=== PATIENT | female | born 1995 | race Caucasian/White ===

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

== ENCOUNTER 2017-01-28 13:50 | Inpatient (IN) ==
[2017-01-28] MEDS ORDERED: Famotidine 20 MG/2 ML VIAL IVP PRN (14:09)
[2017-01-28] MEDS ORDERED: Metoclopramide 10 MG/2 ML VIAL IVP PRN (14:09)
[2017-01-28] MEDS ORDERED: Ringers Solution, Lactated 1,000 ML IVC SCH (14:15)
[2017-01-28 14:30] LABS: Basophils % 0.2 %; Eosinophils % 0.2 %; Hematocrit 27.8 % (35.3-44.9); Hemoglobin 8.5 g/dL (11.5-15.4); Immature Granulocytes % 0.6 % (0-4); Lymphocytes # 2.5 K/mcL (0.6-4.6); Lymphocytes % 20.2 %; Mean Corpuscular HGB Conc 30.6 g/dL (31.6-35.5); Mean Corpuscular Hemoglobin 23.9 pg (28.0-33.3); Mean Corpuscular Volume 78.3 fL (83.0-100.0); Mean Platelet Volume 12.5 fL (9.4-12.4); Monocytes # 0.7 K/mcL (0.0-1.3); Monocytes % 5.5 %; Neutrophils # 9.1 K/mcL (1.6-8.9); Platelet Count 278 K/mcL (140-400); Red Blood Count 3.55 M/mcL (3.82-4.97); Segmented Neutrophils % 73.3 %
[2017-01-28 14:37] LABS: Amphetamine Screen,Urine Negative ng/mL (Cutoff=1000); Barbiturate Screen,Urine Negative ng/mL (Cutoff=200); Benzodiazepines Screen,Urine Negative ng/mL (Cutoff=200); Cannabinoid Screen,Urine Negative ng/mL (Cutoff = 50); Cocaine Screen,Urine Negative ng/mL (Cutoff= 300); Opiate Screen,Urine Negative ng/mL (Cutoff=300); Phencyclidine Screen,Urine Negative ng/mL (Cutoff=25)
[2017-01-28 14:40] LABS: Alanine Aminotransferase 16 Units/L (0-55); Aspartate Amino Transferase 13 Units/L (5-34); BUN/Creatinine Ratio 11 (6-26); Blood Urea Nitrogen 7 mg/dL (7-20); Lactate Dehydrogenase 198 Units/L (159-327); Uric Acid 4.4 mg/dL (2.6-6.0); eGFR For African Americans > 60; eGFR For Non-African Americans > 60
[2017-01-28] MEDS ORDERED: miSOPROStol 100 MCG TABLET PO STA (14:50)
[2017-01-28 14:56] LABS: Protein/Creatinine Ratio,Urine 0.19 mg/mg (0-0.20)
--- NOTE | 2017-01-28 14:58 | OB/GYN History & Physical ---
Date of Encounter: 01/28/17 Time of Encounter: 14:47 Assessment and Plan (1) Non-stress test reactive Current visit: Yes Status: Acute Baseline 140 bpm moderate variability (2) Anemia affecting in third trimester Current visit: Yes Status: Acute Hemoglobin 8.5, which is a drop from last check on 12/04/2016 of 9.6 consider type and screen (3) H/O biophysical profile with non-stress test Current visit: Yes Status: Acute 6 out of 10 in the office today equivocal result (4) Nausea and vomiting during Current visit: Yes Status: Acute (5) Proteinuria affecting Current visit: Yes Status: Acute Protein creatinine ratio is 0.19 today as plan for follow-up with nephrology in April Qualifiers: Trimester: third trimester Qualified Code(s): O12.13 - Gestational proteinuria, third trimester (6) 40 weeks gestation of Current visit: Yes Status: Acute Admit to the labor and delivery induction of labor starting with Cytotec will monitor for cervical change will monitor fetus for distress anticipate spontaneous vaginal delivery History of Present Illness Chief complaint: induction of labor HPI: Bri Mccain is a 21 year-old G 1 P 0 female at 40 weeks and 1 day who presents to labor and delivery for induction secondary to equivocal biophysical profile and elevated pressure at 180/100. Patient reports good movement. Patient denies vaginal bleeding, contractions, and leakage of fluid. Patient admits to nausea, vomiting x1 today, diarrhea, and headaches. The patient was diagnosed with hyperemesis gravidarum earlier in the , and the nausea/vomiting has been fairly consistent since then. The headaches have been occurring throughout the last week. She gets several throughout the day, but she does take any medication for them. She has been having diarrhea through the past week as well, with 3-4 episodes a day. Patient denies shortness of breath, chest pain, visual disturbance, LE edema, and upper abdominal pain. The patient's has been complicated by proteinuria, for which she was seen by nephrology with recommendations to return to them in April for recheck. She is also had anemia throughout the , with hemoglobin of 9.1 on 11/06/2016 and 9.6 on 12/04/2016. Blood pressure not been found to be elevated in the office prior to today's visit. She was last seen in the office by Dr. Matrinez today, 01/28/2017. Cervix was 2 cm and 70% effaced. Station was -3. Blood type: O+ Rubella and Varicella Immune Hep B negative GBS negative All other serologies negative Patient last ate at 8 AM this morning. Past Med Surg Social Fam HX - Past Medical History Source: patient Medical history: non-contributory Psychiatric history: no psych history - Past Surgical History Surgical History: other - Social History Smoking Status: Never smoker Smokeless Tobacco Status: No Alcohol use: none Drug use: none - Family History Daughter Hx Family Endocrine Disorder: Yes (DIABETES) Mother Adopted: No Living Status: Still Living Hx Family Cardiac Disorders: No Hx Family Respiratory Disorders: No Hx Family Cancer: No Hx Family GI Disorders: No Hx Family Endocrine Disorder: No Hx Family Neuromuscular Disorders: No Hx Family Neurologic Disorders: No Hx Family HEENT Disorders: No Hx Family Autoimmune Disorders: No Father Living Status: Still Living Hx Family Endocrine Disorder: Yes (diabetes) Obstetrical History - Pregnancies : 1 Para: 0 Term: 0 : 0 Ab's: 0 Livin Medications and Allergies No Known Home Drugs 01/28/17 [History] 3 Allergy/AdvReac Type Severity Reaction Status Date / Time No Known Allergies Allergy Verified 01/03/17 15:05 Review of System OB - Cardiovascular Cardiovascular: no chest pain, no dyspnea, no leg edema - Respiratory Respiratory: no dyspnea - Gastrointestinal Gastrointestinal: diarrhea, nausea, vomiting - Neurological Nerological: headache(s) Exam - Constitutional Constitutional: well developed, well nourished, no acute distress - HEENT HEENT: Normocephaly - Neck Neck exam: trachea midline - Lungs Respiratory exam: CTAB - Cardiovascular Cardiovascular exam: RRR, +S1, +S2 - Breasts Breast: bilateral: normal - Abdomen Abdomen: Present: gravid, non tender - Extremities Extremities exam: normal inspection Deep Tendon Reflex Grade: 2+ Normal - Cervix Dilation: 2 Effacement: 70 Station: -3 - Uterus Uterus exam: Present: normal size, normal contour Results Result Diagrams: 01/28/17 14:15 01/28/17 14:15 Abnormal lab results WBC 12.4 K/mcL (4.3-11.1) H 01/28/17 14:15 RBC 3.55 M/mcL (3.82-4.97) L 01/28/17 14:15 Hgb 8.5 g/dL (11.5-15.4) L 01/28/17 14:15 Hct 27.8 % (35.3-44.9) L 01/28/17 14:15 MCV 78.3 fL (83.0-100.0) L 01/28/17 14:15 MCH 23.9 pg (28.0-33.3) L 01/28/17 14:15 MCHC 30.6 g/dL (31.6-35.5) L 01/28/17 14:15 RDW 16.0 % (11.5-14.5) H 01/28/17 14:15 MPV 12.5 fL (9.4-12.4) H 01/28/17 14:15 Neutrophils # 9.1 K/mcL (1.6-8.9) H 01/28/17 14:15 All other labs normal. - VTE Reasons for not Prescribing Prophylaxis: Treatment not Indicated - Low risk for VTE
--- NOTE | 2017-01-28 18:38 | OB Labor Progress Note ---
Date of Encounter: 01/28/17 Time of Encounter: 18:33 Labor Progress Note - Subjective Subjective: Pt sitting comfortably in bed, with parents and father of baby at bedside. Dr. Martinez discussed with patient the 6 out of 8 biophysical profile scoring and reasons and methods for induction with family. Discussed with pt the unlikely event of a and reasons for one. Pt and family agree with treatment plan. - Vital Signs Vital Signs: VSS - Cervix Cervix: 2, 70, -30, per CNM - Heart Tones Heart Tones: 140 bpm baseline. Moderate variability. - [place]: Contractions every 2-5 minutes. - Plan Plan: Continue monitoring FHTs, tocometry, and serial cervical exams. AROM if after next cervical exam at 1930, if cervix has not progressed. Epidural if desired. Anticipate .
--- NOTE | 2017-01-28 19:17 | Anesthesia Evaluation PreOp ---
Date of Encounter: 01/28/17 Time of Encounter: 19:04 - Past History Planned Operation: labor epidural Cardiac History: Denies any Significant Hx Pulmonary History: Denies Any Significant HX, Other (states had asthma as a child, hasn't had any attacks in many years and does not take any medication.) AREA INTELLIGENCE TECHNICIAN History: Denies Any Significant HX Other Medical History: Other (obesity) Anesthesia History: No Prior Anesthetic Complications, Past Anesthesia (ureter surgery for kidney reflux at age 3 year, no problems with general anesthesia. No family history of anesthetic problems.) : Yes Alcohol Use: none Drug use: none Medications and Allergies No Known Home Drugs 01/28/17 [History] 3 Allergy/AdvReac Type Severity Reaction Status Date / Time No Known Allergies Allergy Verified 01/03/17 15:05 - Meds/Allergy Pre-op Review Medications Reviewed: Yes Allergies Reviewed: Yes Beta Blockers on Current Med List: No Anesthesia Results - Labs 01/28/17 14:15 01/28/17 14:15 Anesthesia Exam 147/85, 88. FHTs 140s Height: 5'6" Weight: 111kg NPO (# of Hours): 11 hours Pain Scale: 1 Pain Scale Used: Numeric (1 - 10) - HEENT Pupil (Motor): Pupils equal, EOMI Mallampati: II Teeth: Normal Oral Opening: Greater than 3 - AREA INTELLIGENCE TECHNICIAN LOC: Oriented AREA INTELLIGENCE TECHNICIAN Motor: Normal RUE, Normal LUE, Normal RLE, Normal LLE, Normal Face AREA INTELLIGENCE TECHNICIAN Sensory: Normal: RUE, LUE, RLE, LLE, Face - Cardiac Rhythm: Regular - Pulmonary Breath Sounds: bilateral Clear Respiratory Effort: Symmetrical Anesthesia Assess/Plan ASA Score: 2 Modified Franck Scale for Level of Consciousness: Cooperative, oriented, and tranquil Anesthetic Plan: Regional Monitoring Plan: Standard Monitors
[2017-01-28] MEDS ORDERED: *HR* FentaNYL (PF) 100 MCG/2 ML VIAL EP ONE (19:20)
[2017-01-28] MEDS ORDERED: Bupivacaine-MPF 0.25% 10 ML VIAL EP ONE (19:20)
[2017-01-28] MEDS ORDERED: Epidural Premix (fent/bupiv) 110 ML EP SCH (19:30)
--- NOTE | 2017-01-28 20:10 | OB Labor Progress Note ---
Date of Encounter: 01/28/17 Time of Encounter: 20:08 Labor Progress Note - Subjective Subjective: Patient in bed, discussed POC with patient. Patient denies any questions or concerns. - Cervix Cervix: 3/80/-2 - Heart Tones Heart Tones: 140 bpm moderate variability +15x15 accels no decels noted. Cat. 1 tracing. - [place]: 1.5-2.5 min apart - Interventions Interventions: SVE, AROM small amount of clear fluid. - Plan Plan: Continue labor management.
[2017-01-28] MEDS ORDERED: Oxytocin 20 units/ LR 1000 mL 20 UNIT/1,000 ML BAG IVC SCH (21:30)
[2017-01-28] MEDS ORDERED: *HR* Nalbuphine 20 MG/ML AMPUL IVP PRN (21:34)
--- NOTE | 2017-01-29 01:18 | OB Labor Progress Note ---
Date of Encounter: 01/29/17 Time of Encounter: 01:15 Labor Progress Note - Subjective Subjective: Patient resting in bed. Discussed POC with patient. patient denies any questions or concerns - Cervix Cervix: 3/80/-2 - Heart Tones Heart Tones: 130 bpm moderate variability +15x15 accels no decels noted. CAt. 1 tracing - [place]: 2-3 min apart - Interventions Interventions: SVE, IUPC placed without difficulty - Plan Plan: Continue labor management.
[2017-01-29] MEDS ORDERED: *HR* FentaNYL (PF) 100 MCG/2 ML VIAL ONE ×2 (02:32→10:01)
[2017-01-29] MEDS ORDERED: Bupivacaine-MPF 0.25% 10 ML VIAL ONE (02:32)
[2017-01-29] MEDS ORDERED: Epidural Premix (fent/bupiv) 110 ML EP ONE ×2 (02:32→09:29)
--- NOTE | 2017-01-29 03:08 | Anesthesia Procedures ---
Date of Encounter: 01/29/17 Time of Encounter: 02:33 Procedures: Anesthesia - Epidural/Spinal Patient ID/Chart reviewed: Yes Patient examined: Yes OB Eval: Gestational age: 40 OB Eval: : 1 OB Eval: Hx Para: 0 OB Eval: Dilated at (cm): 3 OB Eval: Contractions: Non-stressed pattern Consent Obtained: Yes Supplemental Oxygen: None/Room Air Site Prep: Aseptic Technique, Sterile prep and drape, Povidone-Iodine 1% Patient position: upright Local Anesthetic: Lidocaine 1% Amount of Local Anesthetic used: 3 Touhy Needle Gauge: 18 Touhy Needle Depth (cm): 5 Catheter Depth at Skin (cm): 18 Test Dose (1.5% Lido + Epi): Volume given (mls): 3 Test Dose Result: Negative Loading Dose: 0.25% Marcaine (mls): 8 Loading Dose: Fentanyl (mcg): 100 Loading Dose Administered: Thru Catheter Infusion Med: 0.125% Bupivacaine w/ 2 mcg/ml Fentanyl Infusion Rate (mls/hr): [address]: Tegaderm, Tape Interspace Used: L3-L4 Loss of Resistance (FELIPE): Yes Blood: No CSF: No Paresthesia: No Vitals + FHT's: 3 Vital Signs Time 0233 0240 0245 0250 0255 0300 BP 140/90 140/68 150/72 132/69 138/87 132/79 Pulse 85 90 88 89 88 89 FHTs 140 140 140 140 140 140
[2017-01-29] MEDS ORDERED: Ondansetron 4 MG/2 ML VIAL IVP ONE (06:58)
[2017-01-29] MEDS ORDERED: *HR* Ropivacaine/PF 0.2% 10 ML AMPUL ONE (10:01)
--- NOTE | 2017-01-29 10:14 | Anesthesia Progress Note ---
Date of Encounter: 01/29/17 Time of Encounter: 10:09 Anesthesia Note - Note Note: Called to patient bedside to evaluate breakthrough labor pain. Patient describes back pain and bilateral lower pelvic pain. 5mL of 0.2% ropivicaine and 100mcg fentanyl administered. Patient reports significant improvement in pain scores. VSS 01/29/17 10:09
--- NOTE | 2017-01-29 12:51 | OB Labor Progress Note ---
Date of Encounter: 01/29/17 Time of Encounter: 12:47 Labor Progress Note - Subjective Subjective: Pt comfortable in bed with epidural does feel some pressure in bottom from contractions - Cervix Cervix: 8/90/-1 - Heart Tones Heart Tones: 150/moderate/+accels/occ variables - [place]: IUPC adequate - Plan Plan: Continue current management maintain pitocin per protocol Anticipate Discussed with Dr. Chawla
--- NOTE | 2017-01-29 15:23 | OB/GYN Procedure Note ---
Delivery - Delivery Date: 01/29/17 Provider: Renee Tyler Intrapartum events: none Delivery induction: AROM, oxytocin, misoprostol Delivery monitor: external FHT, external uterine, internal uterine Anesthesia: epidural Estimated Blood Loss: 200 - Infant (s) Infant A Infant Delivery Date: 01/29/17 Infant Delivery Time: : Presentation: vertex Position: OA Route of delivery: Gender: Female Viability: Viable Pounds: 7 Ounces: 5 Weight Gram: 3305 kg at 1 minute: 8 at 5 mins: 9 Shoulder Dystocia: not encountered Specimens collected: cord blood Placenta: spontaneous Cord: nuchal cord, 3 umbilical vessels, delivered through nuchal - Repair Episiotomy: none Laceration Description: Superficial - Complications Delivery complications: none Delivery comments: Patient progressed to complete and began maternal bearing down efforts to of liveborn female, vertex delivered OA, loose nuchal cord identified, shoulders and body easily followed (delivering through her nuchal cord). Vigorous placed on maternal abdomen. Apgars 8/9. Placenta delivered spontaneously and complete upon inspection. Fundus massaged to firm Pitocin started per policy. Perineum with superficial lacerations noted to be hemostatic. EBL 200. and mother stable and left bonding in [facility] in labor and delivery - Disposition Mom disposition: stable in LDR disposition: stable in LDR
[2017-01-29] MEDS ORDERED: Oxytocin 20 units/ LR 1000 mL 20 UNIT/1,000 ML BAG IVC SCH (18:07)
[2017-01-29] MEDS ORDERED: Ibuprofen 600 MG TABLET PO PRN (18:07)
[2017-01-29] MEDS ORDERED: Acetaminophen 325 MG TABLET PO PRN (18:07)
[2017-01-29] MEDS ORDERED: Lanolin 7 G OINT...G. TP PRN (18:07)
[2017-01-29] MEDS ORDERED: Benzocaine/Menthol 56 GM AEROSOL SPRAY TP PRN (18:07)
[2017-01-30 08:19] LABS: Basophils % 0.1 %; Eosinophils % 0.2 %; Hematocrit 24.1 % (35.3-44.9); Hemoglobin 7.4 g/dL (11.5-15.4); Immature Granulocytes % 0.9 % (0-4); Lymphocytes # 3.9 K/mcL (0.6-4.6); Lymphocytes % 16.2 %; Mean Corpuscular HGB Conc 30.7 g/dL (31.6-35.5); Mean Corpuscular Hemoglobin 24.3 pg (28.0-33.3); Mean Corpuscular Volume 79.3 fL (83.0-100.0); Mean Platelet Volume 12.5 fL (9.4-12.4); Monocytes # 1.5 K/mcL (0.0-1.3); Monocytes % 6.3 %; Platelet Count 240 K/mcL (140-400); Red Blood Count 3.04 M/mcL (3.82-4.97); Red Cell Distribution Width 16.5 % (11.5-14.5); Segmented Neutrophils % 76.3 %
[2017-01-30 08:28] LABS: Eosinophils # 0.1 K/mcL (0.0-0.6); Neutrophils # 18.2 K/mcL (1.6-8.9)
--- NOTE | 2017-01-30 08:31 | OB/GYN Progress Note ---
Date of Encounter: 01/30/17 Time of Encounter: 08:30 Subjective - Subjective Principal diagnosis: PPD1 Vaginal Delivery Interval history: Bri is meeting all milestones, no concerns or questions this morning. Patient reports: appetite normal, voiding normally, pain well controlled, ambulating normally : doing well Objective - Latest Vital Signs Latest vital signs: Vital Signs Temp Pulse Pulse Resp BP Pulse Ox 01/30/17 02:31 99.5 F 96 16 136/82 99 01/30/17 00:15 99.5 F 104 16 140/84 97 01/29/17 22:30 98.3 F 106 16 153/87 97 01/29/17 20:50 99 F 108 16 144/85 97 01/29/17 19:35 116 01/29/17 19:30 99.5 F 116 16 151/83 99 01/29/17 18:45 99.2 F 105 16 134/85 01/29/17 17:45 98.2 F 105 16 132/84 97 Intake and Output 01/29/17 01/30/17 01/30/17 23:59 07:59 15:59 Intake Total 0 / 0 1000 / 1000 Balance 0 / 0 1000 / 1000 Intake: Oral 0 / 0 1000 / 1000 Other: Meal Dinner Percent of Meal Consumed 50% Stool Characteristics Normal for Patient # Voids 1 3 # Urine Diapers 1 Weight 109.004 kg 107.9 kg Patient Weight 01/30/17 23:59 Weight 107.9 kg - Exam Lungs: bilateral: normal Chest: Normal S1, Normal S2 Extremities: Present: normal Uterus: Present: normal Uterus Position: 1 Finger Below Umbilicus - Labs Labs: Laboratory Results - last 24 hr 01/30/17 07:41 WBC 23.8 H D RBC 3.04 L Hgb 7.4 L Hct 24.1 L MCV 79.3 L MCH 24.3 L MCHC 30.7 L RDW 16.5 H Plt Count 240 MPV 12.5 H Immature Gran % 0.9 Seg Neutrophils % 76.3 Lymphocytes % 16.2 Monocytes % 6.3 Eosinophils % 0.2 Basophils % 0.1 Neutrophils # 18.2 H Lymphocytes # 3.9 Monocytes # 1.5 H Eosinophils # 0.1 Basophils # 0.0
--- NOTE | 2017-01-30 08:44 | OB/GYN Progress Note ---
Date of Encounter: 01/30/17 Time of Encounter: 08:41 - Assessment and Plan (1) Normal vaginal delivery Current Visit: Yes Status: Acute Continue to monitor bleeding, and any pt symptoms concerns. Pt taking iron. Continue care. Anticipate discharge tomorrow AM 01/31/17. Subjective - Subjective Principal diagnosis: PPD1 Vaginal Delivery Interval history: Bri is ambulating, eating well, voiding well; reports bleeding (not dizzy). Due to pt's morning labs showing a hemoglobin of 7.4, will keep pt for 1 more day and reassess labs in am. Patient reports: appetite normal, voiding normally, pain well controlled, ambulating normally, other (bleeding; not dizzy) Objective - Latest Vital Signs Latest vital signs: Vital Signs Temp Pulse Pulse Resp BP Pulse Ox 01/30/17 07:45 98.4 F 95 16 127/78 98 01/30/17 02:31 99.5 F 96 16 136/82 99 01/30/17 00:15 99.5 F 104 16 140/84 97 01/29/17 22:30 98.3 F 106 16 153/87 97 01/29/17 20:50 99 F 108 16 144/85 97 01/29/17 19:35 116 01/29/17 19:30 99.5 F 116 16 151/83 99 01/29/17 18:45 99.2 F 105 16 134/85 01/29/17 17:45 98.2 F 105 16 132/84 97 Intake and Output 01/29/17 01/30/17 01/30/17 23:59 07:59 15:59 Intake Total 0 / 0 1000 / 1000 Output Total 500 / 500 Balance 0 / 0 500 / 500 Intake: Oral 0 / 0 1000 / 1000 Output: Urine 500 / 500 Other: Meal Dinner Percent of Meal Consumed 50% Stool Characteristics Normal for Patient # Voids 1 3 # Urine Diapers 1 Weight 109.004 kg 107.9 kg Patient Weight 01/30/17 23:59 Weight 107.9 kg - Exam Lungs: bilateral: normal Chest: Normal S1, Normal S2 Extremities: Present: normal Abdomen: Present: normal appearance. Absent: tenderness Uterus Position: 1 Finger Below Umbilicus - Labs Labs: Laboratory Results - last 24 hr 01/30/17 07:41 WBC 23.8 H D RBC 3.04 L Hgb 7.4 L Hct 24.1 L MCV 79.3 L MCH 24.3 L MCHC 30.7 L RDW 16.5 H Plt Count 240 MPV 12.5 H Immature Gran % 0.9 Seg Neutrophils % 76.3 Lymphocytes % 16.2 Monocytes % 6.3 Eosinophils % 0.2 Basophils % 0.1 Neutrophils # 18.2 H Lymphocytes # 3.9 Monocytes # 1.5 H Eosinophils # 0.1 Basophils # 0.0
[2017-01-30] MEDS: Prenatal Vit/FA 1 EACH TABLET PO SCH (10:22)
[2017-01-31] MEDS: Prenatal Vit/FA 1 EACH TABLET PO SCH (08:03)
[2017-01-31 08:29] LABS: Basophils # 0.1 K/mcL (0.0-0.2); Basophils % 0.2 %; Eosinophils # 0.1 K/mcL (0.0-0.6); Eosinophils % 0.4 %; Hematocrit 26.5 % (35.3-44.9); Immature Granulocytes % 0.8 % (0-4); Lymphocytes # 4.5 K/mcL (0.6-4.6); Lymphocytes % 20.9 %; Mean Corpuscular HGB Conc 30.2 g/dL (31.6-35.5); Mean Corpuscular Volume 79.6 fL (83.0-100.0); Mean Platelet Volume 11.9 fL (9.4-12.4); Monocytes # 1.3 K/mcL (0.0-1.3); Neutrophils # 15.5 K/mcL (1.6-8.9); Platelet Count 297 K/mcL (140-400); Red Blood Count 3.33 M/mcL (3.82-4.97); Red Cell Distribution Width 16.8 % (11.5-14.5); Segmented Neutrophils % 71.7 %
--- NOTE | 2017-01-31 08:35 | Discharge Summary ---
Date of Encounter: 01/31/17 Time of Encounter: 08:38 - Discharge Diagnosis (1) 40 weeks gestation of Priority: Primary Status: Acute (2) Non-stress test reactive Priority: Secondary Status: Acute (3) Anemia affecting in third trimester Priority: Secondary Status: Acute (4) H/O biophysical profile with non-stress test Priority: Secondary Status: Acute (5) Nausea and vomiting during Priority: Secondary Status: Acute (6) Proteinuria affecting Priority: Secondary Status: Acute Qualifiers: Trimester: third trimester Qualified Code(s): O12.13 - Gestational proteinuria, third trimester - Discharge Medications Prescriptions: Ibuprofen [Motrin] 600 mg PO Q6HR PRN #60 tab PRN Reason: Pain Docusate [Colace] 100 mg PO BID PRN #60 capsule PRN Reason: Constipation Ferrous Sulfate [Iron] 325 mg PO BID #60 tablet Home Medications: Docusate [Colace] 100 mg PO BID PRN #60 capsule 01/31/17 [Rx] Ferrous Sulfate [Iron] 325 mg PO BID #60 tablet 01/31/17 [Rx] Ibuprofen [Motrin] 600 mg PO Q6HR PRN #60 tab 01/31/17 [Rx] Allergies/Adverse Reactions: 3 Allergy/AdvReac Type Severity Reaction Status Date / Time No Known Allergies Allergy Verified 01/03/17 15:05 Data Procedures and tests throughout hospitalization: Laboratory Tests 01/28/17 01/28/17 01/28/17 14:15 14:15 14:15 WBC 12.4 H RBC 3.55 L Hgb 8.5 L Hct 27.8 L MCV 78.3 L MCH 23.9 L MCHC 30.6 L RDW 16.0 H Plt Count 278 MPV 12.5 H Immature Gran % 0.6 Seg Neutrophils % 73.3 Lymphocytes % 20.2 Monocytes % 5.5 Eosinophils % 0.2 Basophils % 0.2 Neutrophils # 9.1 H Lymphocytes # 2.5 Monocytes # 0.7 Eosinophils # 0.0 Basophils # 0.0 BUN 7 Creatinine 0.63 Est GFR ( Amer) > 60 Est GFR (Non-Af Amer) > 60 BUN/Creatinine Ratio 11 Uric Acid 4.4 AST 13 ALT 16 Lactate Dehydrogenase 198 Urine Creatinine Protein/Creatinin Ratio Urine Total Protein Urine Opiates Screen Negative Ur Barbiturates Screen Negative Ur Phencyclidine Scrn Negative Ur Amphetamines Screen Negative U Benzodiazepines Scrn Negative Urine Cocaine Screen Negative U Marijuana (THC) Screen Negative 01/28/17 01/30/17 01/31/17 14:15 07:41 07:45 WBC 23.8 H D 21.7 H RBC 3.04 L 3.33 L Hgb 7.4 L 8.0 L Hct 24.1 L 26.5 L MCV 79.3 L 79.6 L MCH 24.3 L 24.0 L MCHC 30.7 L 30.2 L RDW 16.5 H 16.8 H Plt Count 240 297 MPV 12.5 H 11.9 Immature Gran % 0.9 0.8 Seg Neutrophils % 76.3 71.7 Lymphocytes % 16.2 20.9 Monocytes % 6.3 6.0 Eosinophils % 0.2 0.4 Basophils % 0.1 0.2 Neutrophils # 18.2 H 15.5 H Lymphocytes # 3.9 4.5 Monocytes # 1.5 H 1.3 Eosinophils # 0.1 0.1 Basophils # 0.0 0.1 BUN Creatinine Est GFR ( Amer) Est GFR (Non-Af Amer) BUN/Creatinine Ratio Uric Acid AST ALT Lactate Dehydrogenase Urine Creatinine 242 Protein/Creatinin Ratio 0.19 Urine Total Protein 46 H Urine Opiates Screen Ur Barbiturates Screen Ur Phencyclidine Scrn Ur Amphetamines Screen U Benzodiazepines Scrn Urine Cocaine Screen U Marijuana (THC) Screen Labs on day of discharge: Labs from last 24 hours 01/31/17 07:45 WBC 21.7 H RBC 3.33 L Hgb 8.0 L Hct 26.5 L MCV 79.6 L MCH 24.0 L MCHC 30.2 L RDW 16.8 H Plt Count 297 MPV 11.9 Immature Gran % 0.8 Seg Neutrophils % 71.7 Lymphocytes % 20.9 Monocytes % 6.0 Eosinophils % 0.4 Basophils % 0.2 Neutrophils # 15.5 H Lymphocytes # 4.5 Monocytes # 1.3 Eosinophils # 0.1 Basophils # 0.1 Date of admission: 01/28/17 13:50 Primary care physician: PCP NONE Consults: 01/29/17 18:07 Consult to Computer Systems Technology Instructor [CONS] Routine Comment: Vaginal delivery, consult needed Discharging clinician: Leslie Chawla Anticipated date of discharge: 01/31/17 - Patient Status Disposition: Home, Self-Care Condition: Good Functional capacity at discharge: independent ambulation Overall status at discharge: patient is progressing back to baseline - Discharge Instructions Follow Up With: NONE,PCP [Primary Care Provider] - Additional Instructions: Perineal Care: Always wipe front to back Change your pad frequently Use your micah bottle with warm water and spray front to back Do not douche, use tampons, have sexual intercourse or put anything in your vagina for 4-6 weeks after delivery Bleeding: Vaginal bleeding can last up to 6 weeks Your menstrual period may return as early as 6 weeks after you are discharged from the hospital Jose/Stitches Care: Vaginal Delivery Vaginal stitches will dissolve within 4-6 weeks Follow perineal care instructions Care Stitches will dissolve on their own If you have jose, they will need to be removed in the doctors office within 5-7 days. You may shower with stitches or jose Drip plan or soapy water over the incision to clean. Pat dry gently with a clean towel. Make sure you completely dry under the skin folds DO NOT USE powders, lotions, rubbing alcohol or hydrogen peroxide on or around your incision. This will slow your wound healing It is normal to have soreness, burning, tingling, itchiness and/or numbness as your incision heals Activity: Rest frequently Do not lift anything heavier than a gallon of milk, up to 10-15 pounds No driving for 1-2 weeks for Vaginal delivery No driving for 2-4 weeks for delivery Take stairs slowly, one at a time Gradually increase your daily activity until you are back to your normal routine Do not exercise until you have had your follow-up appointment Bathing: Take a shower daily Do not take a tub bath for the first 4 weeks Diet: Drink plenty of water and fruit juices Eat a well-balanced diet with foods high in fiber such as fruits and vegetables Depression: Your hormones have a major impact on your feelings and emotions. Hormone imbalance may cause changes in your mood, creating unfamiliar thoughts and actions. Support is available to help you understand and cope with these feelings and mood changes. If you answer yes to any of the following questions, please call your health care provider: Are you having trouble sleeping? Are you feeling isolated? Have you lost your appetite? Are you having thoughts of hurting yourself or others? WARNING SIGNS: Heavy bleeding from the vagina (blood is bright red and soaks a sanitary pad in an hour or less.) Passing a blood clot larger than your fist Discharge from the vagina that has a bad odor Temperature over 100.4 F, or if you feel cold and have chills An episiotomy site that is warm, swollen or oozing. Use a mirror if needed Urination (pee) that is painful, very red and swollen or leaking fluid An incision that is painful, very red and swollen and leaking fluid An incision that has come open Breasts that are painful or full with flu like symptoms Redness, warmth or swelling in the calf of your leg Trouble breathing, dizziness, visual disturbance or faintness *Notify your health care provider immediately or go to the nearest Emergency Room if you experience any of the above signs.* To contact the nurses station 24 hours a day, For non-urgent, routine questions, please call the office at - Diet and Activity Activity: resume usual activities as tolerated Diet: advance to your usual diet Hospital Course IT CONSULTANT Reason for admission: other (PIH, equivocal BPP) Hospital course: Bri Villegas presented at 40 weeks and 1 day from the office on the afternoon of 01/28/17 with elevated pressure at 180/100 and BPP of 6/8. Pressure was 132/84 on admission. It was decided to induce her with cytotec and pitocin. She received epidural. Patient delivered via on 01/29/17 at 1425 without complication. Patient was anemic throughout , with last Hgb at 9.6 on 12/04/16. Hgb was 8.5 on admission and dropped to 7.4 after delivery which delayed her discharge. Today Hgb is up to 8.0. Patient and were discharged in stable condition. Time Attestation: Total time spent providing and/or coordinating discharge services: Time Spent: Less than 30 minutes Exam - Constitutional Vitals: Temp Pulse Resp BP Pulse Ox 98.7 F 96 12 126/82 97 01/30/17 20:42 01/30/17 20:42 01/30/17 20:42 01/30/17 20:42 01/30/17 20:42 General appearance IM: cooperative, answers questions appropriately - Respiratory Respiratory exam: Present: CTAB - Cardiovascular Cardiovascular exam IM: Present: RRR, +S1, +S2 - GI/Abdominal GI/Abdominal exam IM: normal bowel sounds, soft - Uterine Tone: Firm - Extremities Exam Extremities exam IM: Present: normal inspection - Neurological Exam Neurological exam: normal gait, reflexes normal - VTE Reasons for not Prescribing Prophylaxis: Treatment not Indicated - Low risk for VTE - Attending Attestation I examined this patient and my medical decision-making was reviewed with the Resident Physician. I agree with the documented findings, disposition and treatment plan as described except to the extent set forth below.
[2017-01-31 08:57] VITALS: BP 117/70
[2017-01-31 10:22] LABS: Alanine Aminotransferase 15 Units/L (0-55); Aspartate Amino Transferase 16 Units/L (5-34); BUN/Creatinine Ratio 13 (6-26); Blood Urea Nitrogen 9 mg/dL (7-20); Lactate Dehydrogenase 290 Units/L (159-327); Uric Acid 5.1 mg/dL (2.6-6.0); eGFR For African Americans > 60; eGFR For Non-African Americans > 60
== END 2017-01-31 13:16 | disposition home or self-care (01) | DRG 775 ==
LOC: 1NENULAB 13:50 → 1NENUOBS 01-29 17:55
PROVIDERS: ADMIT Obstetrics & Gynecology; ATTEND Obstetrics & Gynecology

== ENCOUNTER 2018-05-04 18:26 | Inpatient (IN) ==
--- NOTE | 2018-05-04 17:51 | OB/GYN History & Physical ---
Date of Encounter: 05/04/18 Time of Encounter: 17:35 Assessment and Plan (1) 39 weeks gestation of Current visit: Yes Status: Acute Admit for 39 weeks gestation with variable FHT baseline on EFM. Plan for IOL. POC discussed with Dr. Barahona. (2) Anemia affecting in third trimester Current visit: No Status: Acute History of Present Illness Chief complaint: contractions HPI: Ms. Mccain is a 22 year old female presenting at 39w1d with c/o contractions. She denies leaking or bleeding. Good FM. This has been complicated by iron deficiency anemia. 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 Psychiatric history: no psych history - Past Surgical History Surgical History: other Additional surgical history: ureter surgery as a child - Social History Smoking Status: Never smoker Smokeless Tobacco Status: No Alcohol use: none Drug use: none - Family History Daughter Hx Family Endocrine Disorder: Yes (DIABETES) Mother Adopted: No Living Status: Still Living Hx Family Cardiac Disorders: No Hx Family Respiratory Disorders: No Hx Family Cancer: No Hx Family GI Disorders: No Hx Family Endocrine Disorder: No Hx Family Neuromuscular Disorders: No Hx Family Neurologic Disorders: No Hx Family HEENT Disorders: No Hx Family Autoimmune Disorders: No Father Family Member Ethnicity: Non- Living Status: Still Living Hx Family Endocrine Disorder: Yes (diabetes) Obstetrical History - Pregnancies : 2 Para: 1 Term: 1 : 0 Ab's: 0 Livin Medications and Allergies Ferrous Sulfate [Iron] 325 mg PO DAILY 03/01/18 [History] Vit Calc,Iron,Folic [ Vitamins] 1 each PO DAILY 03/01/18 [History] Allergy/AdvReac Type Severity Reaction Status Date / Time No Known Allergies Allergy Verified 04/07/18 20:49 Review of System OB All systems PM: reviewed and no additional remarkable complaints except as stated Exam - Constitutional Constitutional: well developed, well nourished, mild distress - HEENT HEENT: Mucus Membranes Moist - Lungs Respiratory exam: CTAB - Cardiovascular Cardiovascular exam: RRR - Abdomen Abdomen: Present: gravid, non tender - Extremities Extremities exam: normal inspection - Cervix Dilation: 2 Effacement: 80 Station: -2 - Anus/Rectum Anus/Rectum: Present: normal perianal skin Results All other labs normal.
[2018-05-04] MEDS ORDERED: Metoclopramide 10 MG/2 ML VIAL IVP PRN (18:49)
[2018-05-04] MEDS ORDERED: Ondansetron 4 MG/2 ML VIAL IVP PRN (18:49)
[2018-05-04] MEDS ORDERED: Famotidine 20 MG/2 ML VIAL IVP PRN (18:49)
[2018-05-04] MEDS ORDERED: *HR* Nalbuphine 10 MG/ML AMPUL IVP PRN (18:49)
[2018-05-04 19:11] LABS: Basophils % 0.2 %; Eosinophils # 0.1 K/mcL (0.0-0.6); Eosinophils % 0.4 %; Hematocrit 29.7 % (35.3-44.9); Hemoglobin 9.4 g/dL (11.5-15.4); Immature Granulocytes % 0.5 % (0-4); Lymphocytes # 2.7 K/mcL (0.6-4.6); Lymphocytes % 21.7 %; Mean Corpuscular HGB Conc 31.6 g/dL (31.6-35.5); Mean Corpuscular Hemoglobin 25.6 pg (28.0-33.3); Mean Corpuscular Volume 80.9 fL (83.0-100.0); Mean Platelet Volume 11.5 fL (9.4-12.4); Monocytes # 0.5 K/mcL (0.0-1.3); Neutrophils # 9.2 K/mcL (1.6-8.9); Platelet Count 296 K/mcL (140-400); Red Blood Count 3.67 M/mcL (3.82-4.97); Red Cell Distribution Width 15.7 % (11.5-14.5); Segmented Neutrophils % 73.2 %
[2018-05-04 19:17] LABS: Amphetamine Screen,Urine Negative ng/mL (Cutoff=1000); Barbiturate Screen,Urine Negative ng/mL (Cutoff=200); Benzodiazepines Screen,Urine Negative ng/mL (Cutoff=200); Cannabinoid Screen,Urine Negative ng/mL (Cutoff = 50); Cocaine Screen,Urine Negative ng/mL (Cutoff= 300); Opiate Screen,Urine Negative ng/mL (Cutoff=300); Phencyclidine Screen,Urine Negative ng/mL (Cutoff=25)
--- NOTE | 2018-05-04 20:07 | Anesthesia Evaluation PreOp ---
Date of Encounter: 05/04/18 Time of Encounter: 20:00 - Past History Planned Operation: ZUNILDA Cardiac History: Denies any Significant Hx, Hyperlipidemia POULTRY BUYER History: Denies Any Significant HX Other Medical History: Other (obesity,Anemia) Anesthesia History: No Prior Anesthetic Complications, Past Anesthesia (T&A without complication) : Yes Alcohol Use: none Drug use: none Medications and Allergies Ferrous Sulfate [Iron] 325 mg PO DAILY 03/01/18 [History] Vit Calc,Iron,Folic [ Vitamins] 1 each PO DAILY 03/01/18 [History] Allergy/AdvReac Type Severity Reaction Status Date / Time No Known Allergies Allergy Verified 05/04/18 18:34 - Meds/Allergy Pre-op Review Medications Reviewed: Yes Allergies Reviewed: Yes Beta Blockers on Current Med List: No Anesthesia Results - Labs 05/04/18 18:38 Anesthesia Exam BP 143/85 P 102 R 16 T 97.2 FHT 130s Height: 5'6" Weight: 12.8kg NPO (# of Hours): 4 Pain Scale: 2 Pain Scale Used: Numeric (1 - 10) - HEENT Pupil (Motor): Pupils equal Mallampati: II Teeth: Normal Oral Opening: Greater than 3 - POULTRY BUYER LOC: Oriented POULTRY BUYER Motor: Normal RUE, Normal LUE, Normal RLE, Normal LLE, Normal Face POULTRY BUYER Sensory: Normal: RUE, LUE, RLE, LLE, Face - Cardiac Rhythm: Regular Murmur: None JVD: No Carotid Bruit: No - Pulmonary Breath Sounds: bilateral Clear Respiratory Effort: Symmetrical Anesthesia Assess/Plan ASA Score: 2 Level of consciousness: Cooperative Anesthetic Plan: Epidural Autologous Blood: No Monitoring Plan: Standard Monitors Recovery Plan: Other
[2018-05-05] MEDS ORDERED: miSOPROStol 25 MCG TABLET PO ONE ×2 (02:00→04:00)
[2018-05-05] MEDS ORDERED: Ringers Solution, Lactated 1,000 ML ONE ×4 (07:52→21:05)
--- NOTE | 2018-05-05 08:23 | OB Labor Progress Note ---
Date of Encounter: 05/05/18 Time of Encounter: 08:20 Labor Progress Note - Subjective Subjective: Patient resting comfortably in bed. - Vital Signs Vital Signs: VSS - Cervix Cervix: 2/70/-3 soft midposition - Heart Tones Heart Tones: 125 cat 1 tracing - [place]: Uterine irritability per toco. uterus palpates soft - Interventions Interventions: Intracervical mariano balloon placed without difficulty. Patient and fetus tolerated well. Inflated with 60cc sterile water. - Plan Physician notified: No Plan: Continue routine labor management GBS negative Consider pitocin/AROM after intracervical mariano displaced Patient may have nubain/epidural upon request Anticipate vaginal delivery POC per consult with Dr Martinez
[2018-05-05] MEDS ORDERED: Oxytocin 20 units/ LR 1000 mL 20 UNIT/1,000 ML BAG IVC SCH ×2 (11:30→23:51)
[2018-05-05] MEDS ORDERED: Epidural Premix (fent/bupiv) 110 ML EP SCH (15:00)
--- NOTE | 2018-05-05 16:07 | OB Labor Progress Note ---
Date of Encounter: 05/05/18 Time of Encounter: 16:04 Labor Progress Note - Subjective Subjective: Patient resting in bed after nubain dose - Vital Signs Vital Signs: VSS - Cervix Cervix: 5-6/70/-2 - Heart Tones Heart Tones: 140 baseline - cat 1 tracing - [place]: Contractions every 2-3 minutes - Interventions Interventions: AROM for large amount of clear fluid. Patient and fetus tolerated well. - Plan Physician notified: No Plan: Continue routine labor management GBS negative Consider pitocin if needed for augmentation Patient may have nubain/epidural upon request Anticipate vaginal delivery POC per consult with Dr Martinez
[2018-05-05] MEDS ORDERED: *HR* FentaNYL (PF) 100 MCG/2 ML VIAL ONE (17:49)
[2018-05-05] MEDS ORDERED: Lidocaine -MPF 1% 5 ML AMPUL ONE (17:49)
[2018-05-05] MEDS ORDERED: Bupivacaine-MPF 0.25% 10 ML VIAL ONE (17:49)
--- NOTE | 2018-05-05 18:50 | OB Labor Progress Note ---
Date of Encounter: 05/05/18 Time of Encounter: 18:49 Labor Progress Note - Subjective Subjective: Comfortable with epidural - Cervix Cervix: 8/-1 - Heart Tones Heart Tones: Cat 1 - Plan Physician notified: Yes
--- NOTE | 2018-05-05 19:11 | Anesthesia Procedures ---
Addendum entered and electronically signed by Melva Ramos CRNA 05/05/18 22:31: Delivery Date: 05/05/18 Delivery Time: 21:44 Original Note: Date of Encounter: 05/05/18 Time of Encounter: 19:09 Procedures: Anesthesia - Epidural/Spinal Patient ID/Chart reviewed: Yes Patient examined: Yes OB Eval: Gestational age: 39 weeks 1 day OB Eval: : 2 OB Eval: Hx Para: 1 OB Eval: Dilated at (cm): 7 OB Eval: Contractions: Non-stressed pattern Consent Obtained: Yes Supplemental Oxygen: None/Room Air Site Prep: Aseptic Technique, Sterile prep and drape, Povidone-Iodine 1% Patient position: upright Local Anesthetic: Lidocaine 1% Amount of Local Anesthetic used: 5 Touhy Needle Gauge: 18 Touhy Needle Depth (cm): 7 Catheter Depth at Skin (cm): 12 Test Dose (1.5% Lido + Epi): Volume given (mls): 5 Test Dose Result: Negative Loading Dose: 0.25% Marcaine (mls): 5 Loading Dose: Fentanyl (mcg): 100 Loading Dose Administered: Thru Catheter Infusion Med: 0.125% Bupivacaine w/ 2 mcg/ml Fentanyl Infusion Rate (mls/hr): 14 (w/ demand bolus of 6mL q30min PRN) Catheter Secured in Place: Tegaderm, Tape Interspace Used: L4-L5 Loss of Resistance (FELIPE): Yes Blood: No CSF: No Paresthesia: No Procedure: sucessful on 1st attempt, patient tolerated procedure well; VSS Vitals + FHT's: see Venita PINZON's electronic records for VS entry
--- NOTE | 2018-05-05 22:09 | OB/GYN Procedure Note ---
Delivery - Delivery Date: 05/05/18 Provider: Akash Martinez Intrapartum events: none Delivery induction: oxytocin, mariano, misoprostol Delivery augmentation: rupture of membranes Delivery monitor: external FHT, external uterine, internal FHT Anesthesia: epidural Quantitated Blood Loss: 100 - (s) A Delivery Date: 05/05/18 Delivery Time: 21:44 Presentation: vertex Position: OA Route of delivery: Gender: Male Viability: Viable Pounds: 6 Ounces: 7 at 1 minute: 7 at 5 mins: 9 Shoulder Dystocia: not encountered Specimens collected: cord blood Placenta: spontaneous - Repair Episiotomy: none Laceration Description: None - Complications Delivery complications: none - Disposition Mom disposition: stable in LDR [place] disposition: stable in LDR - Comments Comments: Patient progressed to complete and on the perineum. She delivered a live male weighing 6 lbs. 7 oz. with Apgars of 79 occiput anterior. Delivered spontaneously intact. No episiotomy or tears were appreciated. Estimated blood loss was 100 mL.
[2018-05-05] MEDS ORDERED: Ibuprofen 600 MG TABLET PO PRN (23:51)
[2018-05-05] MEDS ORDERED: Acetaminophen 325 MG TABLET PO PRN (23:51)
[2018-05-05] MEDS ORDERED: Measles/Mumps/Rubella Vacc 0.5 ML VIAL SQ PRN (23:51)
[2018-05-06 06:22] LABS: Basophils % 0.2 %; Eosinophils # 0.1 K/mcL (0.0-0.6); Eosinophils % 0.5 %; Hematocrit 27.4 % (35.3-44.9); Hemoglobin 8.5 g/dL (11.5-15.4); Immature Granulocytes % 0.5 % (0-4); Lymphocytes # 2.9 K/mcL (0.6-4.6); Lymphocytes % 19.7 %; Mean Corpuscular Hemoglobin 25.4 pg (28.0-33.3); Mean Corpuscular Volume 81.8 fL (83.0-100.0); Mean Platelet Volume 11.6 fL (9.4-12.4); Monocytes % 6.5 %; Neutrophils # 10.7 K/mcL (1.6-8.9); Platelet Count 225 K/mcL (140-400); Red Blood Count 3.35 M/mcL (3.82-4.97); Red Cell Distribution Width 15.6 % (11.5-14.5); Segmented Neutrophils % 72.6 %
[2018-05-06] MEDS ORDERED: Prenatal Vit/FA 1 EACH TABLET PO SCH (09:00)
[2018-05-06] MEDS ORDERED: NON-FORMULARY MEDICATION 1 EACH EACH (Prenatal Vit Calc,Iron,Folic [Prenatal Vitamins] 1 E PO SCH (09:00)
[2018-05-06 09:16] VITALS: BP 129/70
--- NOTE | 2018-05-06 11:12 | Discharge Summary ---
Date of Encounter: 05/06/18 Time of Encounter: 11:08 - Discharge Diagnosis (1) Vaginal delivery Priority: Primary Status: Acute Comments: continue routine care discharge home today per patient request follow up with Dr. Martinez in 4-6 weeks (2) Breast feeding status of mother Priority: Secondary Status: Acute Comments: support prn (3) anemia Priority: Secondary Status: Acute Comments: continue ferrous sulfate daily - Discharge Medications Prescriptions: Ibuprofen [Motrin] 600 mg PO Q6HR PRN #60 tablet PRN Reason: Cramping Breast Pump [BREAST PUMP] 1 each .ROUTE AD #1 each Ferrous Sulfate [Iron] 325 mg PO DAILY #30 tablet Home Medications: Breast Pump [BREAST PUMP] 1 each .ROUTE AD #1 each 05/06/18 [Rx] Ferrous Sulfate [Iron] 325 mg PO DAILY #30 tablet 05/06/18 [Rx] Ibuprofen [Motrin] 600 mg PO Q6HR PRN #60 tablet 05/06/18 [Rx] Vit/FA 1 each PO DAILY tablet 05/06/18 [Rx] Allergies/Adverse Reactions: Allergy/AdvReac Type Severity Reaction Status Date / Time No Known Allergies Allergy Verified 05/04/18 18:34 Data Procedures and tests throughout hospitalization: Laboratory Tests 05/04/18 05/04/18 05/06/18 18:38 18:38 06:02 WBC 12.6 H 14.7 H RBC 3.67 L 3.35 L Hgb 9.4 L 8.5 L Hct 29.7 L 27.4 L MCV 80.9 L 81.8 L MCH 25.6 L 25.4 L MCHC 31.6 31.0 L RDW 15.7 H 15.6 H Plt Count 296 225 MPV 11.5 11.6 Immature Gran % 0.5 0.5 Seg Neutrophils % 73.2 72.6 Lymphocytes % 21.7 19.7 Monocytes % 4.0 6.5 Eosinophils % 0.4 0.5 Basophils % 0.2 0.2 Neutrophils # 9.2 H 10.7 H Lymphocytes # 2.7 2.9 Monocytes # 0.5 1.0 Eosinophils # 0.1 0.1 Basophils # 0.0 0.0 Urine Opiates Screen Negative Ur Barbiturates Screen Negative Ur Phencyclidine Scrn Negative Ur Amphetamines Screen Negative U Benzodiazepines Scrn Negative Urine Cocaine Screen Negative U Marijuana (THC) Screen Negative Ur Drug Screen Interp See Below Labs on day of discharge: Labs from last 24 hours 05/06/18 06:02 WBC 14.7 H RBC 3.35 L Hgb 8.5 L Hct 27.4 L MCV 81.8 L MCH 25.4 L MCHC 31.0 L RDW 15.6 H Plt Count 225 MPV 11.6 Immature Gran % 0.5 Seg Neutrophils % 72.6 Lymphocytes % 19.7 Monocytes % 6.5 Eosinophils % 0.5 Basophils % 0.2 Neutrophils # 10.7 H Lymphocytes # 2.9 Monocytes # 1.0 Eosinophils # 0.1 Basophils # 0.0 Date of admission: 05/04/18 18:26 Primary care physician: Anselmo Mcclelland MD Consults: 05/05/18 23:51 Consult to [employer] Supervisor [CONS] Routine Comment: Vaginal delivery, consult needed Discharging clinician: Caroline Berrios Anticipated date of discharge: 05/06/18 - Patient Status Disposition: Home, Self-Care Condition: Good Functional capacity at discharge: independent ambulation - Discharge Instructions Follow Up With: Anselmo Mcclelland MD [Primary Care Provider] - Akash Martinez MD [Partnered Physician] - - Diet and Activity Activity: increase activity as tolerated Diet: regular diet Hospital Course Delivery: Episiotomy: none Laceration: none Other procedures: none complications: none Discharge diagnosis: IUP at term delivered [place] baby: male (breast feeding) Time Attestation: Total time spent providing and/or coordinating discharge services: Time Spent: Less than 30 minutes Exam - Constitutional Vitals: Temp Pulse Resp BP Pulse Ox 99.3 F 89 16 129/70 97 05/06/18 08:48 05/06/18 08:55 05/06/18 08:48 05/06/18 08:55 05/06/18 08:48 General appearance IM: A&O X 3, pleasant, answers questions appropriately - Respiratory Respiratory exam: Present: CTAB - Cardiovascular Cardiovascular exam IM: Present: RRR, +S1 - GI/Abdominal GI/Abdominal exam IM: normal bowel sounds - Uterine Tone: Firm Uterus Position: At Umbilicus, Midline - Extremities Exam Extremities exam IM: Present: full ROM, normal capillary refill, normal inspection - Neurological Exam Neurological exam: alert, oriented X3, reflexes normal
[2018-05-06] MEDS ORDERED: Lanolin 7 G OINT...G. TP PRN (12:58)
== END 2018-05-06 13:40 | disposition home or self-care (01) | DRG 807 ==
LOC: 1NENULAB → 1NENUOBS 05-06 05:32
PROVIDERS: ADMIT Registered Nurse; ATTEND Registered Nurse

== ENCOUNTER 2019-09-12 09:33 | Observation (INO) ==
[2019-09-12 10:10] LABS: Bilirubin,Urine Negative (Negative); Blood,Urine Negative (Negative); Clarity,Urine Cloudy (Clear); Color,Urine Yellow (Yellow); Glucose,Urine (UA) Normal (Normal); Ketones,Urine Negative (Negative); Leukocyte Esterase,Urine Small (Negative); Nitrite,Urine Negative (Negative); PH,Urine 7.5 pH Units (5.0-8.0); Protein,Urine Negative (Neg-Trace); Specific Gravity,Urine 1.027 (1.010-1.025); Urobilinogen,Urine Normal (Normal)
[2019-09-12 10:11] LABS: Basophils % 0.4 %; Eosinophils # 0.1 K/mcL (0.0-0.6); Eosinophils % 1.1 %; Hematocrit 38.3 % (35.3-44.9); Immature Granulocytes % 0.4 % (0-4); Lymphocytes # 3.1 K/mcL (0.6-4.6); Lymphocytes % 29.6 %; Mean Corpuscular HGB Conc 31.3 g/dL (31.6-35.5); Mean Corpuscular Hemoglobin 27.4 pg (28.0-33.3); Mean Corpuscular Volume 87.4 fL (83.0-100.0); Mean Platelet Volume 10.6 fL (9.4-12.4); Monocytes # 0.7 K/mcL (0.0-1.3); Monocytes % 6.5 %; Neutrophils # 6.5 K/mcL (1.6-8.9); Platelet Count 293 K/mcL (140-400); Red Blood Count 4.38 M/mcL (3.82-4.97); Red Cell Distribution Width 14.6 % (11.5-14.5); White Blood Count 10.4 K/mcL (4.3-11.1)
[2019-09-12 10:13] LABS: Bacteria,Urine Moderate per hpf (None-Few); Hyaline Casts,Urine None Seen per lpf (None-Few); RBC,Urine 0-3 per hpf (0-3); Squamous Epithelial Cell,Urine Many per lpf (None-Few)
[2019-09-12] MEDS ORDERED: 0.9 % Sodium Chloride 1,000 ML IVC ONE (10:20)
[2019-09-12] MEDS ORDERED: Ketorolac 15 MG/ML VIAL IVP ONE (10:20)
[2019-09-12] MEDS ORDERED: Ondansetron 4 MG/2 ML VIAL IVP ONE (10:20)
[2019-09-12 10:23] LABS: Alanine Aminotransferase 11 Units/L (7-52); Albumin 4.5 g/dL (3.5-5.7); Albumin/Globulin Ratio 1.6 (1.1-2.2); Alkaline Phosphatase 88 Units/L (34-104); Amylase 29 Units/L (29-103); Aspartate Amino Transferase 12 Units/L (13-39); BUN/Creatinine Ratio 23 (6-26); Bilirubin,Direct 0.1 mg/dL (0.0-0.2); Bilirubin,Indirect 0.1 mg/dL (0.0-1.0); Bilirubin,Total 0.2 mg/dL (0.3-1.0); Blood Urea Nitrogen 14 mg/dL (6-20); Calcium 9.3 mg/dL (8.6-10.3); Carbon Dioxide 25 mEq/L (23-29); Chloride 106 mEq/L (98-107); Globulin 2.9 g/dL (2.4-3.5); Glucose 117 mg/dL (70-105); Lipase 10 Units/L (11-82); Osmolality,Calculated 290 (280-300); Potassium 4.2 mEq/L (3.5-5.1); Sodium 139 mEq/L (136-145); Total Protein 7.4 g/dL (6.4-8.9); eGFR For African Americans > 60 (> 60); eGFR For Non-African Americans > 60 (> 60)
[2019-09-12] MEDS ORDERED: Ampicillin/Sulbactam 3,000 MG in 0.9 % Sodium Chloride 100 ML IVPB ONE (11:24)
[2019-09-12] MEDS ORDERED: Ampicillin/Sulbactam 3,000 MG in 0.9 % Sodium Chloride Mini Bag 100 ML IVPB ONE (12:00)
[2019-09-12] MEDS ORDERED: 0.9 % Sodium Chloride 1,000 ML IVC SCH (12:00)
[2019-09-12] MEDS ORDERED: Lidocaine -MPF 2% 2 ML VIAL ONE ×2 (13:58→20:36)
[2019-09-12] MEDS ORDERED: Ondansetron 4 MG/2 ML VIAL ONE ×2 (13:58→20:36)
[2019-09-12] MEDS ORDERED: *HR* Propofol 200 MG/20 ML VIAL IVP ONE ×2 (13:58→20:32)
[2019-09-12] MEDS ORDERED: Ketorolac 30 MG/ML VIAL ONE (13:58)
[2019-09-12] MEDS ORDERED: *HR* Rocuronium Bromide 50 MG/5 ML VIAL ONE ×2 (13:58→20:36)
[2019-09-12] MEDS ORDERED: *HR* FentaNYL (PF) 100 MCG/2 ML VIAL ONE ×3 (13:58→21:06)
[2019-09-12] MEDS ORDERED: *HR* Midazolam HCl 2 MG/2 ML VIAL ONE ×2 (13:58→20:32)
[2019-09-12] MEDS ORDERED: Dexamethasone 4 MG/ML VIAL ONE ×2 (13:58→20:36)
[2019-09-12] MEDS ORDERED: Acetaminophen IV 1,000 MG/100 ML INFUS..BTL ONE (20:25)
[2019-09-12] MEDS ORDERED: *HR* HYDROmorphone (PF) 1 MG/ML SYRINGE IVP PRN (20:27)
[2019-09-12] MEDS ORDERED: Ondansetron 4 MG/2 ML VIAL IVP PRN ×2 (20:27→22:38)
[2019-09-12] MEDS ORDERED: *HR* Promethazine 25 MG/ML VIAL IVP PRN (20:27)
[2019-09-12] MEDS ORDERED: *HR* HYDROMORPHONE 2 MG/ML VIAL ONE (21:04)
[2019-09-12] MEDS ORDERED: *HR* OxyCODONE/APAP 5/325 TABLET PO PRN (22:38)
[2019-09-12] MEDS: Ketorolac 15 MG/ML VIAL IVP SCH (23:57)
[2019-09-12] MEDS: Ampicillin/Sulbactam 3,000 MG in 0.9 % Sodium Chloride Mini Bag 100 ML IVPB SCH (23:58)
[2019-09-13] MEDS: Ketorolac 15 MG/ML VIAL IVP SCH (05:36)
[2019-09-13] MEDS: Ampicillin/Sulbactam 3,000 MG in 0.9 % Sodium Chloride Mini Bag 100 ML IVPB SCH (05:37)
[2019-09-13 07:44] VITALS: BP 150/92
== END 2019-09-13 10:53 | disposition home or self-care (01) ==
LOC: EMEROOARM 09:33 → 3ANU 09:33
PROVIDERS: ADMIT Surgery; ATTEND Surgery

== ENCOUNTER → 2021-01-07 14:40 | Observation (INO) ==
[2021-01-07 12:32] LABS: Basophils % 0.1 %; Eosinophils # 0.1 K/mcL (0.0-0.6); Eosinophils % 0.3 %; Hematocrit 29.4 % (35.3-44.9); Hemoglobin 9.4 g/dL (11.5-15.4); Immature Granulocytes % 0.5 % (0-4); Lymphocytes # 2.6 K/mcL (0.6-4.6); Lymphocytes % 17.8 %; Mean Corpuscular Hemoglobin 26.6 pg (28.0-33.3); Mean Corpuscular Volume 83.1 fL (83.0-100.0); Mean Platelet Volume 11.6 fL (9.4-12.4); Monocytes # 0.8 K/mcL (0.0-1.3); Monocytes % 5.7 %; Platelet Count 264 K/mcL (140-400); Red Blood Count 3.54 M/mcL (3.82-4.97); Red Cell Distribution Width 14.2 % (11.5-14.5); Segmented Neutrophils % 75.6 %; White Blood Count 14.6 K/mcL (4.3-11.1)
[2021-01-07 13:11] LABS: Alanine Aminotransferase 13 Units/L (7-52); Aspartate Amino Transferase 10 Units/L (13-39); BUN/Creatinine Ratio 17 (6-26); Blood Urea Nitrogen 8 mg/dL (6-20); Lactate Dehydrogenase 143 Units/L (140-271); Uric Acid 5.7 mg/dL (2.3-7.6); eGFR For African Americans > 60 (> 60); eGFR For Non-African Americans > 60 (> 60)
[2021-01-07 13:24] LABS: Protein/Creatinine Ratio,Urine 0.19 mg/mg (0.00-0.20)
== END | disposition home or self-care (01) ==
LOC: 1NENULAB
PROVIDERS: ADMIT Advanced Practice Midwife; ATTEND Advanced Practice Midwife

== ENCOUNTER 2021-02-05 15:40 | Inpatient (IN) ==
[2021-02-05] MEDS ORDERED: Metoclopramide 10 MG/2 ML VIAL IVP PRN (16:24)
[2021-02-05] MEDS ORDERED: Penicillin G Potassium 5,000,000 UNIT in 0.9 % Sodium Chloride Mini Bag 100 ML IVPB ONE (16:24)
[2021-02-05] MEDS ORDERED: Famotidine 20 MG/2 ML VIAL IVP PRN (16:24)
[2021-02-05] MEDS ORDERED: Naloxone 0.4 MG/ML INJ IVP PRN (16:24)
[2021-02-05] MEDS ORDERED: *HR* Nalbuphine 10 MG/ML AMPUL IV PRN (16:24)
[2021-02-05] MEDS ORDERED: 0.9 % Sodium Chloride 1,000 ML IVC SCH (16:30)
[2021-02-05] MEDS ORDERED: Oxytocin 20 units/ LR 1000 mL 20 UNIT/1,000 ML BAG IVC SCH (16:30)
[2021-02-05] MEDS ORDERED: *HR* Labetalol 20 MG/4 ML SYRINGE IVP PRN (16:50)
[2021-02-05 17:27] LABS: Basophils % 0.2 %; Eosinophils % 0.2 %; Hemoglobin 8.6 g/dL (11.5-15.4); Immature Granulocytes % 0.5 % (0-4); Lymphocytes # 2.2 K/mcL (0.6-4.6); Lymphocytes % 16.7 %; Mean Corpuscular HGB Conc 30.7 g/dL (31.6-35.5); Mean Corpuscular Hemoglobin 24.9 pg (28.0-33.3); Mean Corpuscular Volume 81.2 fL (83.0-100.0); Mean Platelet Volume 11.9 fL (9.4-12.4); Monocytes # 0.7 K/mcL (0.0-1.3); Neutrophils # 10.4 K/mcL (1.6-8.9); Platelet Count 249 K/mcL (140-400); Red Blood Count 3.45 M/mcL (3.82-4.97); Red Cell Distribution Width 14.8 % (11.5-14.5); Segmented Neutrophils % 77.4 %; White Blood Count 13.4 K/mcL (4.3-11.1)
[2021-02-05] MEDS ORDERED: D5% in 0.9% NACL 1,000 ML IVC SCH (17:30)
[2021-02-05] MEDS ORDERED: *HR* Labetalol 20 MG/4 ML SYRINGE IVP ONE ×2 (17:36→17:39)
[2021-02-05 17:52] LABS: Protein/Creatinine Ratio,Urine 0.12 mg/mg (0.00-0.20)
[2021-02-05 17:55] LABS: Alanine Aminotransferase 7 Units/L (7-52); Aspartate Amino Transferase 8 Units/L (13-39); BUN/Creatinine Ratio 13 (6-26); Blood Urea Nitrogen 8 mg/dL (6-20); Lactate Dehydrogenase 154 Units/L (140-271); Uric Acid 5.6 mg/dL (2.3-7.6); eGFR For African Americans > 60 (> 60); eGFR For Non-African Americans > 60 (> 60)
[2021-02-05 17:59] LABS: Influenza A PCR Negative (Negative); Influenza B PCR Negative (Negative); Resp. Syncytial Virus PCR Negative (Negative)
[2021-02-05 18:03] LABS: SARS-CoV-2 by PCR (In House) Negative (Negative)
[2021-02-05 18:35] LABS: Amphetamine Screen,Urine Negative ng/mL (Cutoff=1000)
[2021-02-05 18:36] LABS: Barbiturate Screen,Urine Negative ng/mL (Cutoff=200); Benzodiazepines Screen,Urine Negative ng/mL (Cutoff=300); Cannabinoid Screen,Urine Negative ng/mL (Cutoff = 50); Cocaine Screen,Urine Negative ng/mL (Cutoff= 300); Opiate Screen,Urine Negative ng/mL (Cutoff=300); Phencyclidine Screen,Urine Negative ng/mL (Cutoff=25)
[2021-02-05] MEDS ORDERED: Calcium Gluconate 1,000 MG/10 ML VIAL ONE (18:48)
[2021-02-05] MEDS ORDERED: *HR* Labetalol 20 MG/4 ML SYRINGE IVP STA (19:48)
[2021-02-05] MEDS ORDERED: EPHEDrine 50 MG/ML VIAL IVP PRN (20:11)
[2021-02-05] MEDS ORDERED: Epidural Premix (fent/bupiv) 110 ML EP SCH (20:15)
[2021-02-05] MEDS: Ondansetron 4 MG/2 ML VIAL IVP PRN (21:19)
[2021-02-05] MEDS: Penicillin G Potassium 2,500,000 UNIT in 0.9 % Sodium Chloride 100 ML IVPB SCH (21:19)
[2021-02-06] MEDS: Penicillin G Potassium 2,500,000 UNIT in 0.9 % Sodium Chloride 100 ML IVPB SCH ×4 (01:00→13:30)
[2021-02-06] MEDS: Magnesium Sulf 20 gm/SW 500mL 20 GM/500 ML IV.SOLN IVC SCH ×2 (05:01→15:07)
[2021-02-06] MEDS: Ondansetron 4 MG/2 ML VIAL IVP PRN ×2 (10:41→15:07)
[2021-02-06] MEDS ORDERED: Magnesium Sulf 20 gm/SW 500mL 20 GM/500 ML IV.SOLN IVC SCH (18:33)
[2021-02-06] MEDS ORDERED: Ondansetron ODT 4 MG TAB.RAPDIS SL PRN (18:33)
[2021-02-06] MEDS ORDERED: Lanolin 7 G OINT...G. TP PRN (18:33)
[2021-02-06] MEDS ORDERED: Benzocaine/Menthol 56 GM AEROSOL SPRAY TP PRN (18:33)
[2021-02-06] MEDS: NIFEdipine XL (24 HR) 30 MG TAB.ER.24 PO SCH (18:45)
[2021-02-06] MEDS: Oxytocin 20 units/ LR 1000 mL 20 UNIT/1,000 ML BAG IVC SCH (20:22)
[2021-02-06] MEDS: Acetaminophen 325 MG TABLET PO SCH (20:23)
[2021-02-06] MEDS: Ibuprofen 600 MG TABLET PO SCH (20:23)
[2021-02-07 06:34] LABS: Basophils % 0.2 %; Eosinophils # 0.1 K/mcL (0.0-0.6); Eosinophils % 0.5 %; Hematocrit 26.5 % (35.3-44.9); Hemoglobin 8.4 g/dL (11.5-15.4); Immature Granulocytes % 0.7 % (0-4); Lymphocytes # 2.5 K/mcL (0.6-4.6); Lymphocytes % 20.5 %; Mean Corpuscular HGB Conc 31.7 g/dL (31.6-35.5); Mean Corpuscular Hemoglobin 25.5 pg (28.0-33.3); Mean Corpuscular Volume 80.5 fL (83.0-100.0); Mean Platelet Volume 11.8 fL (9.4-12.4); Monocytes # 0.9 K/mcL (0.0-1.3); Monocytes % 7.1 %; Neutrophils # 8.7 K/mcL (1.6-8.9); Platelet Count 239 K/mcL (140-400); Red Blood Count 3.29 M/mcL (3.82-4.97); Red Cell Distribution Width 15.2 % (11.5-14.5); White Blood Count 12.3 K/mcL (4.3-11.1)
[2021-02-07 06:52] LABS: Alanine Aminotransferase 7 Units/L (7-52); Aspartate Amino Transferase 9 Units/L (13-39); BUN/Creatinine Ratio 11 (6-26); Blood Urea Nitrogen 7 mg/dL (6-20); Lactate Dehydrogenase 170 Units/L (140-271); Uric Acid 5.8 mg/dL (2.3-7.6); eGFR For African Americans > 60 (> 60); eGFR For Non-African Americans > 60 (> 60)
[2021-02-07] MEDS: NIFEdipine XL (24 HR) 30 MG TAB.ER.24 PO SCH (08:25)
[2021-02-07] MEDS: Ibuprofen 600 MG TABLET PO SCH ×2 (08:25→20:19)
[2021-02-07] MEDS: Prenatal Vit/FA 1 EACH TABLET PO SCH (08:26)
[2021-02-07] MEDS: Oxytocin 20 units/ LR 1000 mL 20 UNIT/1,000 ML BAG IVC SCH (08:27)
[2021-02-07] MEDS ORDERED: NIFEdipine XL (24 HR) 30 MG TAB.ER.24 PO SCH (09:00)
[2021-02-07] MEDS: Acetaminophen 325 MG TABLET PO SCH ×3 (09:03→20:19)
[2021-02-08] MEDS: NIFEdipine XL (24 HR) 30 MG TAB.ER.24 PO SCH (08:32)
[2021-02-08 17:25] LABS: Basophils % 0.2 %; Eosinophils # 0.1 K/mcL (0.0-0.6); Eosinophils % 0.6 %; Hemoglobin 9.1 g/dL (11.5-15.4); Immature Granulocytes % 0.7 % (0-4); Lymphocytes # 2.6 K/mcL (0.6-4.6); Lymphocytes % 18.2 %; Mean Corpuscular HGB Conc 30.3 g/dL (31.6-35.5); Mean Corpuscular Volume 82.4 fL (83.0-100.0); Mean Platelet Volume 10.9 fL (9.4-12.4); Monocytes # 0.8 K/mcL (0.0-1.3); Monocytes % 5.4 %; Neutrophils # 10.9 K/mcL (1.6-8.9); Platelet Count 284 K/mcL (140-400); Red Blood Count 3.64 M/mcL (3.82-4.97); Red Cell Distribution Width 15.2 % (11.5-14.5); Segmented Neutrophils % 74.9 %; White Blood Count 14.5 K/mcL (4.3-11.1)
[2021-02-08 17:42] LABS: Alanine Aminotransferase 10 Units/L (7-52); Aspartate Amino Transferase 11 Units/L (13-39); BUN/Creatinine Ratio 11 (6-26); Blood Urea Nitrogen 8 mg/dL (6-20); Lactate Dehydrogenase 191 Units/L (140-271); Uric Acid 5.6 mg/dL (2.3-7.6); eGFR For African Americans > 60 (> 60); eGFR For Non-African Americans > 60 (> 60)
[2021-02-08] MEDS: Acetaminophen 325 MG TABLET PO SCH ×2 (18:22→19:45)
[2021-02-08] MEDS: Ibuprofen 600 MG TABLET PO SCH ×2 (18:22→19:45)
[2021-02-08] MEDS: Prenatal Vit/FA 1 EACH TABLET PO SCH (18:22)
[2021-02-09] MEDS: Acetaminophen 325 MG TABLET PO SCH ×3 (01:00→12:51)
[2021-02-09] MEDS: Ibuprofen 600 MG TABLET PO SCH ×2 (02:23→12:50)
[2021-02-09 06:35] VITALS: O2SAT 98
[2021-02-09 09:36] VITALS: BP 150/86; PULSE 100; TEMP 98.2
[2021-02-09] MEDS: NIFEdipine XL (24 HR) 30 MG TAB.ER.24 PO SCH (11:39)
[2021-02-09] MEDS: Prenatal Vit/FA 1 EACH TABLET PO SCH (12:51)
== END 2021-02-09 12:52 | disposition home or self-care (01) | DRG 807 ==
LOC: 1NENULAB 15:40 → 1NENUOBS 02-06 20:17
PROVIDERS: ADMIT Obstetrics & Gynecology; ATTEND Obstetrics & Gynecology